=== PATIENT | male | born 1950 | race Caucasian/White ===

== ENCOUNTER 2016-12-30 09:38 | Emergency (ER) | payer MEDICARE, BC ==
[2016-12-30] MEDS ORDERED: NORMAL SALINE 1000 ML 1,000 ML IV ONE (09:59)
--- NOTE | 2016-12-30 09:59 | ER Document Report ---
ED Medical Screen (RME) - General Mode of Arrival: Wheelchair Information source: Patient TRAVEL OUTSIDE OF THE [place] IN LAST 30 DAYS: No - HPI Patient complains to provider of: Left Side Pain and Bruising Onset: Other - 1 week ago Quality of pain: Achy Associated Symptoms: Other - see notes above - Related Data Smoking: Cigarettes - electronic Frequency of alcohol use: None Drug Abuse: None - General Chief Complaint: Rib Pain Stated Complaint: RIB PAIN Time Seen by Provider: 12/30/16 09:50 Notes: 66-year-old male with history of hypercholesterolemia, hypertension, and depression presents to the ED complaining of constant left-sided pain that started 1 week ago which is exacerbated when turning. Patient denies any recent falls, but reports that he did lose his balance while walking down the stairs but did catch himself. Patient is additionally complaining of fatigue, but denies nausea or vomiting. Patient had blood work performed on 12/22/2016 which showed a blood pressure of 120/81 and a BUN/creatinine of 24/1.09. Patient denies being on any blood thinning medication. (SOULEYMANE CAPPS) - Related Data Allergies/Adverse Reactions: No Known Allergies Allergy (Unverified 12/30/16 09:43) Past Medical History - General Information source: Patient - Social History Cigarette use (# per day): Yes Chew tobacco use (# tins/day): No Frequency of alcohol use: None Drug Abuse: None - Past Medical History Cardiac Medical History: Reports: Hx Hypercholesterolemia, Hx Hypertension Renal/ Medical History: Denies: Hx Peritoneal Dialysis Psychiatric Medical History: Reports: Hx Depression Review of Systems - Review of Systems Constitutional: See HPI, Malaise EENT: No symptoms reported Cardiovascular: No symptoms reported Respiratory: No symptoms reported Gastrointestinal: No symptoms reported. denies: Nausea, Vomiting Genitourinary: No symptoms reported Male Genitourinary: No symptoms reported Musculoskeletal: See HPI, Other - Left side pain Skin: No symptoms reported Hematologic/Lymphatic: No symptoms reported Neurological/Psychological: No symptoms reported -: Yes All other systems reviewed and negative Physical Exam - General General appearance: Alert In distress: None - HEENT Head: Normocephalic, Atraumatic - Respiratory Respiratory status: Other - shortness of breath. No: No respiratory distress Chest status: Ecchymosis - see skin exam below Breath sounds: Rhonchi - left. No: Wheezing - Cardiovascular Rhythm: Regular Heart sounds: Normal auscultation Pulses: Normal: Radial, Dorsalis pedis - Abdominal Inspection: Normal - Extremities General upper extremity: Normal inspection General lower extremity: Normal inspection - Skin Skin Temperature: Warm Skin Moisture: Dry Skin Color: Ecchymosis - Extensive ecchymosis that begins assisted down the left rib cage from the axillary line extending to left iliac crest and to the midline lumbar region. Some yellowing to the bruise.. negative: Normal - Vital signs Vitals: Temp Pulse Resp BP Pulse Ox 97.6 F 69 20 99/62 L 98 12/30/16 09:43 12/30/16 09:43 12/30/16 09:43 12/30/16 09:43 12/30/16 09:43 Course - Re-evaluation Re-evalutation: 12/30/16 10:04 Sent over by Nathaly LAM, given the hypotension and bruising on the flank I am concerned for intra-abdominal, specifically retroperitoneal bleeding. BUN and creatinine were normal in 12/22/2016, patient is agreeable to not waiting for blood work and going straight for CT scan to check for retroperitoneal hemorrhage. (ANTONIO TRUONG) - Vital Signs Vital signs: Temp Pulse Resp BP Pulse Ox 97.6 F 69 20 99/62 L 98 12/30/16 09:43 12/30/16 09:43 12/30/16 09:43 12/30/16 09:43 12/30/16 09:43 Scribe Documentation - Scribe Written by Alicja:: Alicja Mercedes, 12/30/2016 1021 acting as scribe for :: Mookie
[2016-12-30 10:35] LABS: APPEARANCE,URINE CLEAR; BILIRUBIN,URINE NEGATIVE (NEGATIVE); GLUCOSE, URINE NEGATIVE (NEGATIVE); KETONES,URINE NEGATIVE (NEGATIVE); LEUKOCYTE ESTERASE,URINE NEGATIVE (NEGATIVE); NITRITE,URINE NEGATIVE (NEGATIVE); PROTEIN,URINE NEGATIVE (NEGATIVE); URINE SPECIFIC GRAVITY 1.011; UROBILINOGEN,URINE NEGATIVE mg/dL (<2.0)
[2016-12-30 10:36] LABS: ABSOLUTE BASOPHILS # (AUTO) 0.1 10^3/uL (0.0-0.2); ABSOLUTE EOSINOPHILS # (AUTO) 0.1 10^3/uL (0.0-0.6); ABSOLUTE LYMPHOCYTES (AUTO) 2.5 10^3/uL (0.5-4.7); ABSOLUTE MONOCYTES (AUTO) 0.9 10^3/uL (0.1-1.4); ABSOLUTE NEUT (AUTO) 11.6 10^3/uL (1.7-8.2); BASOPHILS % (AUTO) 0.5 % (0-2); EOSINOPHILS % (AUTO) 0.9 % (0-6); HEMATOCRIT 27.6 % (37.9-51.0); HEMOGLOBIN 9.6 g/dL (13.5-17.0); HGB HCT DIFFERENCE 1.2; LYMPHOCYTES % (AUTO) 16.5 % (13-45); MEAN CORPUSCULAR HEMOGLOBIN 34.4 pg (27.0-33.4); MEAN CORPUSCULAR HGB CONC 34.8 g/dL (32.0-36.0); MEAN CORPUSCULAR VOLUME 99 fl (80-97); MONOCYTES % (AUTO) 6.1 % (3-13); WHITE BLOOD COUNT 15.2 10^3/uL (4.0-10.5)
[2016-12-30 10:39] LABS: PROTHROMBIN TIME 14.3 SEC (11.4-15.4)
[2016-12-30 10:46] LABS: ALANINE AMINOTRANSFERASE 57 U/L (21-72); ALBUMIN 4.2 g/dL (3.5-5.0); ALKALINE PHOSPHATASE 76 U/L (38-126); ANION GAP 15 (5-19); ASPARTATE AMINO TRANSFERASE 25 U/L (17-59); BILIRUBIN,DIRECT 0.7 mg/dL (0.0-0.4); BILIRUBIN,TOTAL 1.3 mg/dL (0.2-1.3); BLOOD UREA NITROGEN 87 mg/dL (7-20); CALCIUM 10.1 mg/dL (8.4-10.2); CARBON DIOXIDE 21 mmol/L (22-30); CHLORIDE 105 mmol/L (98-107); CREATININE RESULT 1.95 mg/dL (0.52-1.25); GLUCOSE 143 mg/dL (75-110); POTASSIUM 5.2 mmol/L (3.6-5.0); SODIUM 140.9 mmol/L (137-145); TOTAL PROTEIN 7.5 g/dL (6.3-8.2)
[2016-12-30] MEDS: NORMAL SALINE 1000 ML 1,000 ML IV PRN ×2 (11:05→12:36)
--- NOTE | 2016-12-30 11:13 | RADIOLOGY REPORT (SQ) ---
EXAM DESCRIPTION: CT CHEST WITHOUT COMPLETED DATE/TIME: 12/30/2016 10:57 am REASON FOR STUDY: SOB, bruising left flank, fall, hypotension COMPARISON: None. TECHNIQUE: CT scan performed of the chest without intravenous contrast. Images reviewed with lung, soft tissue and bone windows. Reconstructed coronal and sagittal MPR images reviewed. All images st ored on PACS. All CT scanners at this facility use dose modulation, iterative reconstruction, and/or weight based d osing when appropriate to reduce radiation dose to as low as reasonably achievable (ALARA). [facility]: Dose Right [facility]: CareDose [facility]: Dose Right [facility]: Teradose 4D [facility]: Smart [employer]. RADIATION DOSE: 14.4mGy. LIMITATIONS: No technical limitations. FINDINGS: LUNGS AND PLEURA: There is linear opacification in the left upper lobe adjacent to the fis sure. There is a moderate left pleural effusion. There is subsegmental atelectasis in the left lowe r lobe. HILAR AND MEDIASTINAL STRUCTURES: No identified masses or abnormal nodes. No obvious aneurysm. HEART AND VASCULAR STRUCTURES: No aneurysm. No pericardial effusion. UPPER ABDOMEN: See separate report of the CT of the abdomen. THYROID AND OTHER SOFT TISSUES: No masses. No adenopathy. BONES: There is an displaced fracture of the left 8th rib posterolaterally. HARDWARE: None in the chest. OTHER: No other significant findings. IMPRESSION: 1. Displaced fracture of the left 8th rib. 2. Moderate left pleural effusion versus hemothorax. 3. Likely subsegmental atelectasis in the left upper lobe and in the left lower lobe. 4. No pneumothorax. TECHNICAL DOCUMENTATION: JOB ID: [id number] Quality ID # [id number]: Final reports with documentation of one or more dose reduction techniques (e.g., Au tomated exposure control, adjustment of the mA and/or kV according to patient size, use of iterative reconstruction technique) 2010 [employer]- All Rights Reserved
--- NOTE | 2016-12-30 11:26 | ER Document Report ---
ED General - General Chief Complaint: Rib Pain Stated Complaint: RIB PAIN Time Seen by Provider: 12/30/16 09:50 Mode of Arrival: Wheelchair Information source: Patient Notes: This is a 66-year-old man with a history of hypertension, dyslipidemia, alcohol abuse with DTs (stop drinking alcohol this past October). The patient initially presented to the primary care doctor (Nathaly Ramirez) with left flank pain and ecchymoses. The patient is accompanied by his . She reports that the patient did have an upper respiratory infection last week and was coughing a lot and stated he "pulled a muscle" at the time. The patient states he was walking down the steps 2 days ago and stumbled. He states he did not fall. He has been complaining of left flank pain since then. Patient's noticed ecchymoses and had him go to the doctor. She reports that there is been no change in mental status. She reports that he does not smoke cigarettes ( previous 2 packs a day) or had alcohol since October. TRAVEL OUTSIDE OF THE [place] IN LAST 30 DAYS: No - HPI Onset: Last week Onset/Duration: Gradual Quality of pain: Dull Severity: Moderate Pain Level: 2 Associated symptoms: denies: Chest pain, Fever, Shortness of breath Exacerbated by: Movement Relieved by: Denies Similar symptoms previously: Yes Recently seen / treated by doctor: Yes - Related Data Allergies/Adverse Reactions: No Known Allergies Allergy (Unverified 12/30/16 09:43) Home Medications: Current Home Medications Azilsartan Med/Chlorthalidone [Edarbyclor 40-25 mg Tablet] 1 tab PO DAILY [History] Buspirone HCl 7.5 mg PO BID 12/30/16 [History] Metoprolol Succinate [Metoprolol Succinate] 100 mg PO DAILY 12/30/16 [History] Rosuvastatin Calcium [Rosuvastatin Calcium] 10 mg PO QHS 12/30/16 [History] Sertraline HCl [Sertraline HCl] 50 mg PO DAILY 12/30/16 [History] Past Medical History - General Information source: Patient - Social History Smoking Status: Former Smoker Cigarette use (# per day): Yes Chew tobacco use (# tins/day): No Frequency of alcohol use: History of alcohol abuse and DTs: Quit 2 months ago Drug Abuse: None Lives with: Spouse/Significant other Family History: None Patient has suicidal ideation: No - Past Medical History Cardiac Medical History: Reports: Hx Hypercholesterolemia, Hx Hypertension Renal/ Medical History: Denies: Hx Peritoneal Dialysis Psychiatric Medical History: Reports: Hx Depression Surgical Hx: Negative Review of Systems - Review of Systems Constitutional: denies: Chills, Fever EENT: No symptoms reported Cardiovascular: No symptoms reported Respiratory: No symptoms reported Gastrointestinal: No symptoms reported Genitourinary: No symptoms reported Male Genitourinary: No symptoms reported Musculoskeletal: See HPI Skin: See HPI Hematologic/Lymphatic: See HPI Neurological/Psychological: No symptoms reported Physical Exam - Vital signs Vitals: Temp Pulse Resp BP Pulse Ox 97.6 F 69 20 99/62 L 98 12/30/16 09:43 12/30/16 09:43 12/30/16 09:43 12/30/16 09:43 12/30/16 09:43 Notes: Physical exam: GENERAL: 66-year-old man, alert and oriented 3, no acute distress. He is answering questions appropriately. HEAD: Atraumatic, normocephalic. EYES: Pupils equal round and reactive to light, extraocular movements intact, sclera anicteric, conjunctiva are normal. ENT: TMs normal, nares patent, oropharynx clear without exudates. Moist mucous membranes. NECK: Normal range of motion, supple without obvious mass or JVD. LUNGS: Breath sounds clear to auscultation bilaterally and equal. No wheezes rales or rhonchi. HEART: Regular rate and rhythm without murmurs, rubs or gallops. ABDOMEN: Soft, normoactive bowel sounds. No tenderness to palpation. No guarding, no rebound. No masses appreciated. He does have left flank ecchymoses. EXTREMITIES: Normal range of motion, no pitting or edema. No clubbing or cyanosis. NEUROLOGICAL: Cranial nerves II through XII grossly intact. Normal speech, moving all extremities. PSYCH: Normal mood, normal affect. SKIN: Warm, Dry, normal turgor, no rashes or lesions noted. Course - Re-evaluation Re-evalutation: 12/30/16 17:07 In summary: This is a 66-year-old male with a history of hypertension, drinking in the past (not actively drinking by history) who presented with left flank pain and bruising. Patient gives a history with a significant upper respiratory tract with a lot of coughing 1 week ago and notes one particular day when he coughs so hard that he thought he "pulled something" on the left side of his chest and had a lot of pain. The patient also notes that he was walking down the steps and hit the step wrong and staggered which caused a lot of pain to the left side of the chest. The patient presented with left flank pain and tenderness along with a contusion. His blood pressures have been 100 systolic which is a little on the low side for him. CT of the chest revealed a left hemothorax. CT of the abdomen showed no evidence of intra-abdominal blood , splenic injury or renal injury. The CT was without IV contrast because the patient was noted to be in acute renal failure (which is now). He is never had any hospitalizations in reports never having any problems with his kidneys. The patient was treated in the emergency room with IV fluids. His initial crit was 28. Surgery was consulted regarding the hemothorax and they felt that the hemothorax was at the very least several days old and might be coagulated if the tube was placed. They recommended transferring the patient for thoracic consult with possible VATs. Given the acute renal failure, patient will require further workup and serial enzymes after hydration. He does not require any blood at this point. I have discussed the plan of transfer with Dr. Gabriel at [facility] and he is except the patient. I have discussed the plan with the patient and his and daughter and they are in agreement. 12/30/16 17:14 Transport is here: Patient is hemodynamically stable. - Vital Signs Vital signs: Temp Pulse Resp BP Pulse Ox 98.3 F 69 25 H 96/61 L 95 12/30/16 17:09 12/30/16 09:43 12/30/16 17:01 12/30/16 17:00 12/30/16 17:01 - Laboratory Result Diagrams: 12/30/16 10:10 12/30/16 10:10 Laboratory results interpreted by me: 12/30/16 12/30/16 12/30/16 10:10 10:10 10:10 WBC 15.2 H RBC 2.80 L Hgb 9.6 L Hct 27.6 L MCV 99 H MCH 34.4 H Absolute Neutrophils 11.6 H Potassium 5.2 H Carbon Dioxide 21 L BUN 87 H Creatinine 1.95 H Est GFR ( Amer) 42 L Est GFR (Non-Af Amer) 35 L Glucose 143 H Magnesium Direct Bilirubin 0.7 H Ammonia Creatine Kinase Urine Blood SMALL H 12/30/16 12/30/16 12/30/16 10:10 11:45 11:45 WBC RBC Hgb Hct MCV MCH Absolute Neutrophils Potassium Carbon Dioxide BUN Creatinine Est GFR ( Amer) Est GFR (Non-Af Amer) Glucose Magnesium 2.4 H Direct Bilirubin Ammonia < 8.7 L Creatine Kinase 24 L Urine Blood - Diagnostic Test Radiology reviewed: Image reviewed, Reports reviewed - CT of the chest abdomen and pelvis reveals left hemothorax with a displaced left rib fracture. There is no evidence of pneumothorax. - EKG Interpretation by Me Rate: Normal Rhythm: NSR - EKG shows normal sinus rhythm with a ventricular rate of 64, no acute ST-T wave changes Critical Care Note - Critical Care Note Total time excluding time spent on procedures (mins): 80 Discharge - Discharge Clinical Impression: Left hemothorax, Left eighth displaced rib fracture, Left flank hematoma, Acute renal failure Condition: Stable Disposition: [facility] Referrals: LILLY RAMIREZ MD [Primary Care Provider] - Follow up as needed
--- NOTE | 2016-12-30 11:28 | RADIOLOGY REPORT (SQ) ---
EXAM DESCRIPTION: CT ABD/PELVIS NO ORAL OR IV COMPLETED DATE/TIME: 12/30/2016 10:57 am REASON FOR STUDY: SOB, bruising left flank, fall, hypotension COMPARISON: None. TECHNIQUE: CT scan of the abdomen and pelvis performed without intravenous or oral contrast. Images reviewed with lung, soft tissue, and bone windows. Reconstructed coronal and sagittal MPR images revi ewed. All images stored on PACS. All CT scanners at this facility use dose modulation, iterative reconstruction, and/or weight based d osing when appropriate to reduce radiation dose to as low as reasonably achievable (ALARA). [facility]: Dose Right [facility]: CareDose [facility]: Dose Right [facility]: Teradose 4D [facility]: [employer] RADIATION DOSE: Up-to-date CT equipment and radiation dose reduction techniques were employed. CTDIv ol: 14.4 mGy. DLP: 1051 mGy-cm.mGy. LIMITATIONS: None. FINDINGS: LOWER CHEST: See separate report of the CT of the chest. NON-CONTRASTED LIVER, SPLEEN, ADRENALS: Evaluation limited by lack of IV contrast. No identified sign ificant masses. PANCREAS: No masses. No peripancreatic inflammatory changes. GALLBLADDER: No identified stones by CT criteria. No inflammatory changes to suggest cholecystitis. RIGHT KIDNEY AND URETER: No suspicious masses. Assessment limited by lack of IV contrast. No signif icant calcifications. No hydronephrosis or hydroureter. LEFT KIDNEY AND URETER: No suspicious masses. Assessment limited by lack of IV contrast. No signifi cant calcifications. No hydronephrosis or hydroureter. AORTA AND RETROPERITONEUM: No aneurysm. No retroperitoneal masses or adenopathy. BOWEL AND PERITONEAL CAVITY: No obvious masses or inflammatory changes. No free fluid. APPENDIX: Normal. PELVIS, BLADDER, AND ABDOMINAL WALL:There is stranding in the subcutaneous fat of the left side of th e abdominal wall BONES: Once again the fracture of the left 8th rib is seen. OTHER: No other significant finding. IMPRESSION: Subcutaneous hematoma in the left abdominal wall. There is no evidence of an injury to the spleen or left kidney. COMMENT: Quality ID # [id number]: Final reports with documentation of one or more dose reduction techniques (e.g., Automated exposure control, adjustment of the mA and/or kV according to patient size, use of iterative reconstruction technique) TECHNICAL DOCUMENTATION: JOB ID: [id number] All Rights Reserved
[2016-12-30 11:43] LABS: MAGNESIUM 2.4 mg/dL (1.6-2.3)
[2016-12-30 11:46] LABS: ALCOHOL < 10 mg/dL (NONE DETECTED)
[2016-12-30 12:58] LABS: CREATINE KINASE MB 0.86 ng/mL (<4.55)
[2016-12-30 13:00] LABS: TROPONIN I < 0.012 ng/mL
--- NOTE | 2016-12-30 14:23 | CONSULTATION REPORT E ---
Consultation Report NAME: CARINE GORDON : 1950 AGE: 66Y DATE: 12/30/2016 TO: SUSAN STOUT M.D. FROM: LASHAY MODI M.D. Requesting Physician REASON FOR CONSULTATION: Patient with large hematoma on the left chest, eighth rib fracture, and left hemothorax. HISTORY OF PRESENT ILLNESS: This is a 66-year-old male who slipped off the stairs and bumped his left chest and developed pains. The noted discoloration of the left chest and subsequently brought him to the emergency room. Patient, however, has been complaining of off and on severe pains on deep breathing. Patient has never been in the hospital since he was born. PAST HISTORY: History of hypertension and takes metoprolol. SOCIAL HISTORY: Used to smoke a pack and a half to 2 packs until 2 years ago. Denies any recreational drug use. Denies alcohol use. ALLERGIES: None known. FAMILY HISTORY: Noncontributory. REVIEW OF SYSTEMS: Complaining of pains along the left chest and on deep breathing for pulmonary. Denies any visual or hearing problems. No diarrhea, no constipation, no dysuria. No nausea or vomiting. No easy bruisability or lymph node enlargement. No seizure disorder. Rest of the systems are negative. PHYSICAL EXAMINATION: GENERAL: Well-developed, well-nourished 66-year-old male alert and oriented, complaining of pains along the left chest. NECK: Supple. No thyromegaly. LUNGS: Decreased breath sounds on the left side. HEART: Slightly tachycardic around 105 per minute sinus. ABDOMEN: Soft, nontender. EXTREMITIES: No edema. IMPRESSION: 1. Hematoma to the left lateral chest wall. 2. Fracture of the left eighth rib. 3. Hemothorax. RECOMMENDATIONS: In view of the fact that patient has been a smoker and issues for pain management will be a factor, patient needs an evacuation of the hemothorax to prevent any empyema, patient will be benefited more if he is transferred to a tertiary hospital where they have a thoracic surgeon available. He might need epidural anesthesia or intercostal nerve block for pain management to prevent any atelectasis, which may lead to pneumonia. DICTATING PHYSICIAN: SUSAN STOUT M.D. [id number] PHY#: [id number] ID: [id number] JOB#: [id number] ACCT: [id number] cc:SUSAN STOUT M.D. >
[2016-12-30 17:11] VITALS: BP 96/61
--- NOTE | 2016-12-30 19:57 | EKG REPORT ---
SEVERITY:- NORMAL ECG - SINUS RHYTHM : Confirmed by: Tito Varela MD 30-Dec-2016 19:56:57
== END 2016-12-30 17:11 | disposition short-term general hospital (02) ==
LOC: ER 09:38
DX: S27.1XXA Traumatic hemothorax, initial encounter (principal); S22.32XA Fracture of one rib, left side, initial encounter for closed fracture; S30.1XXA Contusion of abdominal wall, initial encounter; X58.XXXA Exposure to other specified factors, initial encounter; N19 Unspecified kidney failure; I10 Essential (primary) hypertension; R10.9 Unspecified abdominal pain; Z87.891 Personal history of nicotine dependence
CPT/HCPCS: 93005; 99291; 99292; 96360; 96361; 86900; 86901; 36415; 82553; 86850; 80307; 82140; 82550; 83735; 85025; 85610; 80053; 81001; 84484; 83605; 71250; 74176; 93010; J7030